=== PATIENT | female | born 1985 | race Caucasian/White ===

== ENCOUNTER 2022-09-10 12:11 | Emergency (ER) | payer BC ==
[2022-09-10 13:15] LABS: ANION GAP 13.2 mEq/L (7-13); CHLORIDE,CL 101 mmol/L (98-107); SODIUM,NA 137 mmol/L (136-145)
[2022-09-10 13:18] LABS: ESTIMATED GFR 85 mL/min (>=60)
[2022-09-10] MEDS ORDERED: Butorphanol 2 MG/ML SDV IM ONE (13:38)
[2022-09-10] MEDS ORDERED: Metoclopramide 10 MG/2 ML SDV IM ONE (13:39)
== END 2022-09-10 14:44 | disposition home or self-care (01) ==
LOC: DL.ED 12:11
DX: G43.119 Migraine with aura, intractable, without status migrainosus (principal); R29.818 Other symptoms and signs involving the nervous system
CPT/HCPCS: 36415; 70450; 80053; 82947; 84703; 85025; 86140; 93005; 93010; 96372; 99284; 99285; J0595; J2765

== ENCOUNTER 2022-09-12 03:48 | Emergency (ER) | payer BC ==
[2022-09-12] MEDS ORDERED: Sodium Chloride 0.9% 10 ML Syringe FLUSH PRN (04:11)
[2022-09-12] MEDS ORDERED: Sodium Chloride 0.9% 1,000 ML IV ONE (04:11)
[2022-09-12] MEDS ORDERED: Metoclopramide 10 MG/2 ML SDV IVPUSH ONE (04:11)
[2022-09-12] MEDS ORDERED: Ketorolac 30 MG/ML SDV IVPUSH ONE (04:11)
== END 2022-09-12 05:06 | disposition home or self-care (01) ==
LOC: DL.ED 03:48
DX: G43.119 Migraine with aura, intractable, without status migrainosus (principal); R20.0 Anesthesia of skin; R20.2 Paresthesia of skin; I10 Essential (primary) hypertension; Z79.899 Other long term (current) drug therapy
CPT/HCPCS: 96361; 96374; 96375; 99283; 99283-25; J1885; J2765; J3490; J7030